=== PATIENT | male | born 2000 | race Caucasian/White ===

== ENCOUNTER 2020-04-28 14:12 | Emergency (ER) | payer OTHER ==
[~2020-04-28] VITALS: Ht 185.4 cm; Wt 79.4 kg
[2020-04-28] MEDS ORDERED: AUGMENTIN 875-1 EACH PO (15:15)
[2020-04-28] MEDS ORDERED: IBUPROFEN 800800 M1 PO (15:15)
[2020-04-28] MEDS ORDERED: NORCO 5-325 TA1 EAC1 PO (15:15)
[2020-04-28 15:43] VITALS: BP 147/82
== END 2020-04-28 15:44 | disposition home or self-care (01) ==
LOC: M.ERS 14:12
DX: S62.631B Displaced fracture of distal phalanx of left index finger, initial encounter for open fracture (principal); W26.8XXA Contact with other sharp object(s), not elsewhere classified, initial encounter; Y93.89 Activity, other specified; Y92.89 Other specified places as the place of occurrence of the external cause; Y99.8 Other external cause status

== ENCOUNTER 2021-07-04 07:57 | Emergency (ER) | payer OTHER ==
[~2021-07-04] VITALS: Ht 182.9 cm; Wt 68.0 kg
[~2021-07-04 07:57] MED LIST: AUGMENTIN 875-1 EACH PO; IBUPROFEN 800800 M1 PO; NORCO 5-325 TA1 EAC1 PO
[2021-07-04] MEDS ORDERED: CIPROFLOXIN HC2.5 M1 OPHTHALMIC (08:52)
[2021-07-04 08:57] VITALS: BP 137/97
== END 2021-07-04 08:57 | disposition home or self-care (01) ==
LOC: M.ERS 07:57
DX: H10.31 Unspecified acute conjunctivitis, right eye (principal)